=== PATIENT | male | born 1965 | race Two or more races ===

== ENCOUNTER 2022-01-13 12:50 | Emergency (ER) | payer BC, MEDICAID ==
[~2022-01-13] VITALS: Ht 185.4 cm; Wt 115.7 kg
[2022-01-13 13:05] VITALS: BP 110/89
== END 2022-01-13 15:17 | disposition home or self-care (01) ==
LOC: ER 12:50
DX: T84.038A Mechanical loosening of other internal prosthetic joint, initial encounter (principal); F17.210 Nicotine dependence, cigarettes, uncomplicated
CPT/HCPCS: 73610

== ENCOUNTER 2023-01-01 10:38 | Inpatient (IN) | payer BC, MEDICAID ==
[~2023-01-01] VITALS: Ht 185.4 cm; Wt 120.0 kg
[2023-01-01 11:21] LABS: Basophils # (auto) 0.1 10 ^3/uL (0-0.2); Nucleated Red Blood Cells % 0.1 %
[2023-01-01 11:23] LABS: Basophils % (auto) 1.1 % (0.0-2.0); Eosinophils # (auto) 0.9 10 ^3/uL (0-0.8); Eosinophils % (auto) 9.9 % (0.0-7.0); Hematocrit 54.5 % (41.0-53.0); Hemoglobin 18.3 g/dL (13.5-17.5); Lymphocytes # (auto) 2.4 10 ^3/uL (0.4-5.4); Lymphocytes % (auto) 27.1 % (10.0-50.0); Mean Corpuscular Hemoglobin 31.4 pg (28.0-32.0); Mean Corpuscular Hgb Conc. 33.5 g/dL (32.0-36.0); Mean Corpuscular Volume 93.7 fL (80.0-100.0); Monocytes # (auto) 0.5 10 ^3/uL (0-1.3); Monocytes % (auto) 5.7 % (0.0-12.0); Neutrophils % (auto) 56.2 % (37.0-80.0); Red Blood Cells 5.82 10^6/uL (4.5-5.90); Red Cell Distribution Width 13.1 % (11.8-14.3)
[2023-01-01 11:45] LABS: Potassium 3.5 mmol/L (3.5-5.1)
[2023-01-01 11:48] LABS: Albumin 3.5 g/dL (3.4-5.0); BUN/Creatinine Ratio 14.5 (10.0-20.0)
[2023-01-01 11:51] LABS: Bilirubin, Total 1.1 mg/dL (0.2-1.0); Total Protein 8.2 g/dL (6.4-8.2)
[2023-01-01] MEDS ORDERED: SODIUM CHLORIDE 0.9% 1,000 ML IV ONE (12:45)
[2023-01-01] MEDS ORDERED: LABETALOL HCL 5 MG/ML 4ML SYRINGE IV ONE (12:45)
[2023-01-01] MEDS ORDERED: METO25TA93 PO (13:24)
[2023-01-01] MEDS ORDERED: SACU1TAB PO (13:24)
[2023-01-01] MEDS ORDERED: hydrALAZINE HCL 20 MG/ML VL IV PRN (13:30)
[2023-01-01] MEDS ORDERED: ACETAMINOPHEN 325 MG TAB PO PRN (13:30)
[2023-01-01] MEDS ORDERED: DEXTROSE (50%) 50ML SYRG IV PRN (13:30)
[2023-01-01] MEDS ORDERED: TEMAZEPAM 15 MG CAP PO PRN (13:30)
[2023-01-01] MEDS ORDERED: MORPHINE SULFATE INJ 2 MG/ml SYRG IV PRN ×2 (13:30)
[2023-01-01] MEDS ORDERED: ONDANSETRON HCL 4 MG/2 ML VIAL IV PRN (13:30)
[2023-01-01] MEDS ORDERED: HYDROcodone-ACET 5/325MG TAB PO PRN (13:30)
[2023-01-01] MEDS ORDERED: NITROGLYCERIN 0.4 MG SL TAB SL PRN (13:30)
[2023-01-01] MEDS: ACCU-CHEK COMFORT CURVE STRIP VI SCH ×2 (17:00→22:00)
[2023-01-01] MEDS: InsuLIN REG 1unit/0.01ml Soln (100units/ml) SC SCH ×2 (19:00→22:00)
[2023-01-01 22:20] VITALS: BP 161/100
[2023-01-01] MEDS: SACUBITRIL-VALSARTAN 24mg/26mg TAB PO SCH (22:46)
[2023-01-01] MEDS: ENOXAPARIN SOD 120 MG/0.8 ML SYRINGE SC SCH (22:46)
[2023-01-01 23:06] VITALS: BP 161/100
[2023-01-02 05:00] VITALS: BP 168/108
[2023-01-02] MEDS: ACCU-CHEK COMFORT CURVE STRIP VI SCH ×4 (06:09→21:49)
[2023-01-02] MEDS: InsuLIN REG 1unit/0.01ml Soln (100units/ml) SC SCH ×4 (06:10→21:49)
[2023-01-02 06:26] LABS: Mean Corpuscular Hgb Conc. 34.4 g/dL (32.0-36.0); Nucleated Red Blood Cells % 0.5 %
[2023-01-02 06:29] LABS: Basophils # (auto) 0.1 10 ^3/uL (0-0.2); Basophils % (auto) 1.1 % (0.0-2.0); Eosinophils # (auto) 1.1 10 ^3/uL (0-0.8); Eosinophils % (auto) 10.4 % (0.0-7.0); Hematocrit 52.2 % (41.0-53.0); Hemoglobin 17.9 g/dL (13.5-17.5); Lymphocytes % (auto) 29.1 % (10.0-50.0); Mean Corpuscular Hemoglobin 31.9 pg (28.0-32.0); Mean Corpuscular Volume 92.8 fL (80.0-100.0); Monocytes # (auto) 0.7 10 ^3/uL (0-1.3); Monocytes % (auto) 6.8 % (0.0-12.0); Neutrophils # (auto) 5.5 10 ^3/uL (1.6-8.6); Neutrophils % (auto) 52.6 % (37.0-80.0); Red Blood Cells 5.63 10^6/uL (4.5-5.90); White Blood Cell 10.4 10^3/uL (4.4-10.8)
[2023-01-02 06:46] LABS: Albumin 3.4 g/dL (3.4-5.0); Calcium 8.7 mg/dL (8.5-10.1); Potassium 4.1 mmol/L (3.5-5.1)
[2023-01-02 06:50] LABS: BUN/Creatinine Ratio 18.8 (10.0-20.0); Bilirubin, Total 1.2 mg/dL (0.2-1.0); Total Protein 7.7 g/dL (6.4-8.2)
[2023-01-02 08:00] VITALS: BP 174/86
[2023-01-02 09:00] VITALS: BP 174/90
[2023-01-02] MEDS ORDERED: ENOXAPARIN SOD 40 MG/0.4 ML SYRINGE SC SCH (10:00)
[2023-01-02] MEDS: PANTOPRAZOLE 40 MG TAB PO SCH (10:07)
[2023-01-02] MEDS: ENOXAPARIN SOD 120 MG/0.8 ML SYRINGE SC SCH (10:07)
[2023-01-02] MEDS: SACUBITRIL-VALSARTAN 24mg/26mg TAB PO SCH ×2 (10:07→21:47)
[2023-01-02] MEDS: METOPROLOL SUCCINATE XL 50 MG TAB PO SCH (10:08)
[2023-01-02 13:00] VITALS: BP_SYST 138; BP_SYST 160; BP_DIAS 84; BP_DIAS 95
[2023-01-02 17:00] VITALS: BP 148/90
[2023-01-02] MEDS: hydrALAZINE HCL 20 MG/ML VL IV PRN (21:46)
[2023-01-02 22:00] VITALS: BP 170/93
[2023-01-03] VITALS (7 sets, daily range): BP systolic 140–178; BP diastolic 79–109
[2023-01-03] MEDS: hydrALAZINE HCL 20 MG/ML VL IV PRN (05:06)
[2023-01-03] MEDS: InsuLIN REG 1unit/0.01ml Soln (100units/ml) SC SCH ×4 (06:54→21:44)
[2023-01-03] MEDS: ACCU-CHEK COMFORT CURVE STRIP VI SCH ×4 (06:54→21:45)
[2023-01-03] MEDS ORDERED: amLODIPine BESYLATE 5 MG TAB PO SCH (10:00)
[2023-01-03] MEDS ORDERED: ENOXAPARIN SOD 40 MG/0.4 ML SYRINGE SC SCH (10:00)
[2023-01-03] MEDS: NICOTINE 21MG/24 HR TOPICAL PATCH TD SCH (10:00)
[2023-01-03] MEDS: SACUBITRIL-VALSARTAN 24mg/26mg TAB PO SCH ×2 (10:01→21:40)
[2023-01-03] MEDS: PANTOPRAZOLE 40 MG TAB PO SCH (10:02)
[2023-01-03] MEDS: ASPirin 81 mg TAB PO SCH (10:03)
[2023-01-03] MEDS: METOPROLOL SUCCINATE XL 50 MG TAB PO SCH (10:03)
[2023-01-03] MEDS ORDERED: OPTISON 3ml Vial for INJ IV ONE (10:59)
[2023-01-03] MEDS ORDERED: amLODIPine BESYLATE 5 MG TAB PO ONE (11:00)
[2023-01-03] MEDS ORDERED: IOHEXOL 350 MG/ML 100ML IJ ONE (15:40)
[2023-01-03] MEDS ORDERED: ENOXAPARIN SOD 120 MG/0.8 ML SYRINGE SC ONE (17:00)
[2023-01-03] MEDS ORDERED: ENOXAPARIN SOD 80 MG/0.8ML SYRINGE SC ONE (17:00)
[2023-01-03] MEDS: ENOXAPARIN SOD 120 MG/0.8 ML SYRINGE SC SCH (21:40)
[2023-01-04 05:00] VITALS: BP 143/96
[2023-01-04] MEDS: InsuLIN REG 1unit/0.01ml Soln (100units/ml) SC SCH ×4 (06:08→21:27)
[2023-01-04] MEDS: ACCU-CHEK COMFORT CURVE STRIP VI SCH ×4 (06:08→21:27)
[2023-01-04 09:00] VITALS: BP 128/80
[2023-01-04] MEDS: NICOTINE 21MG/24 HR TOPICAL PATCH TD SCH (10:00)
[2023-01-04] MEDS: HCTZ 25 MG TAB PO SCH (11:20)
[2023-01-04] MEDS: amLODIPine BESYLATE 5 MG TAB PO SCH (11:21)
[2023-01-04] MEDS: PANTOPRAZOLE 40 MG TAB PO SCH (11:22)
[2023-01-04] MEDS: ASPirin 81 mg TAB PO SCH (11:22)
[2023-01-04] MEDS: METOPROLOL SUCCINATE XL 50 MG TAB PO SCH (11:22)
[2023-01-04] MEDS: SACUBITRIL-VALSARTAN 24mg/26mg TAB PO SCH ×2 (11:22→21:24)
[2023-01-04] MEDS: ENOXAPARIN SOD 120 MG/0.8 ML SYRINGE SC SCH ×2 (11:24→21:24)
[2023-01-04 13:00] VITALS: BP 121/80
[2023-01-04 17:00] VITALS: BP 126/83
[2023-01-04 22:00] VITALS: BP 126/81
[2023-01-05 05:00] VITALS: BP 134/90
[2023-01-05 06:09] LABS: Basophils # (auto) 0.1 10 ^3/uL (0-0.2); Hemoglobin 18.6 g/dL (13.5-17.5); Monocytes # (auto) 0.7 10 ^3/uL (0-1.3); Monocytes % (auto) 7.3 % (0.0-12.0); Nucleated Red Blood Cells % 0.2 %; White Blood Cell 10.1 10^3/uL (4.4-10.8)
[2023-01-05 06:11] LABS: Eosinophils # (auto) 0.9 10 ^3/uL (0-0.8); Eosinophils % (auto) 9.3 % (0.0-7.0); Hematocrit 53.9 % (41.0-53.0); Lymphocytes # (auto) 3.5 10 ^3/uL (0.4-5.4); Lymphocytes % (auto) 35.1 % (10.0-50.0); Mean Corpuscular Hgb Conc. 34.4 g/dL (32.0-36.0); Mean Corpuscular Volume 93.1 fL (80.0-100.0); Neutrophils # (auto) 4.8 10 ^3/uL (1.6-8.6); Neutrophils % (auto) 47.3 % (37.0-80.0); Red Blood Cells 5.79 10^6/uL (4.5-5.90); Red Cell Distribution Width 13.1 % (11.8-14.3)
[2023-01-05] MEDS: InsuLIN REG 1unit/0.01ml Soln (100units/ml) SC SCH ×4 (06:24→21:52)
[2023-01-05] MEDS: ACCU-CHEK COMFORT CURVE STRIP VI SCH ×4 (06:24→21:53)
[2023-01-05 06:33] LABS: Calcium 8.6 mg/dL (8.5-10.1)
[2023-01-05 06:37] LABS: BUN/Creatinine Ratio 15.5 (10.0-20.0)
[2023-01-05 09:00] VITALS: BP 118/81
[2023-01-05] MEDS: SACUBITRIL-VALSARTAN 24mg/26mg TAB PO SCH ×2 (09:35→21:48)
[2023-01-05] MEDS: amLODIPine BESYLATE 5 MG TAB PO SCH (09:37)
[2023-01-05] MEDS: PANTOPRAZOLE 40 MG TAB PO SCH (09:37)
[2023-01-05] MEDS: ASPirin 81 mg TAB PO SCH (09:37)
[2023-01-05] MEDS: HCTZ 25 MG TAB PO SCH (09:38)
[2023-01-05] MEDS: METOPROLOL SUCCINATE XL 50 MG TAB PO SCH (09:39)
[2023-01-05] MEDS: ENOXAPARIN SOD 120 MG/0.8 ML SYRINGE SC SCH ×2 (09:43→21:48)
[2023-01-05] MEDS: NICOTINE 21MG/24 HR TOPICAL PATCH TD SCH (09:46)
[2023-01-05 13:00] VITALS: BP 125/77
[2023-01-05 17:00] VITALS: BP 120/71
[2023-01-05 22:00] VITALS: BP 119/82
[2023-01-06 05:00] VITALS: BP 128/89
[2023-01-06] MEDS: InsuLIN REG 1unit/0.01ml Soln (100units/ml) SC SCH ×4 (06:01→22:00)
[2023-01-06] MEDS: ACCU-CHEK COMFORT CURVE STRIP VI SCH ×4 (06:02→22:19)
[2023-01-06 06:30] LABS: INR 1.12 (0.9-1.15); Partial Thromboplastin Time 37.4 sec (24.6-33.4)
[2023-01-06 07:05] LABS: Urine Bacteria NONE SEEN /hpf (None Seen); Urine Blood 1+ /uL (Negative); Urine Hyaline Cast FEW /lpf (0 - 2); Urine Mucus FEW (None Seen); Urine Specific Gravity 1.024 (1.001-1.035); Urine WBC 156 /hpf (0 - 3); Urine WBC Clumps PRESENT /hpf (None Seen)
[2023-01-06] MEDS: NICOTINE 21MG/24 HR TOPICAL PATCH TD SCH (10:00)
[2023-01-06] MEDS: PANTOPRAZOLE 40 MG TAB PO SCH (10:27)
[2023-01-06] MEDS: ASPirin 81 mg TAB PO SCH (10:27)
[2023-01-06] MEDS: SACUBITRIL-VALSARTAN 24mg/26mg TAB PO SCH ×2 (10:27→22:19)
[2023-01-06] MEDS: amLODIPine BESYLATE 5 MG TAB PO SCH (10:28)
[2023-01-06] MEDS: HCTZ 25 MG TAB PO SCH (10:28)
[2023-01-06] MEDS: METOPROLOL SUCCINATE XL 50 MG TAB PO SCH (10:29)
[2023-01-06] MEDS: ENOXAPARIN SOD 120 MG/0.8 ML SYRINGE SC SCH ×2 (10:30→22:19)
[2023-01-06 10:50] VITALS: BP 128/76
[2023-01-06 11:19] VITALS: BP 128/76
[2023-01-06] MEDS ORDERED: ceFAZolin 1GM/50ML 100 ML IV ONE (18:21)
[2023-01-06] MEDS ORDERED: BUPIVACAINE 0.25% INJ 50ML VIAL ONE (18:53)
[2023-01-06] MEDS ORDERED: ceFAZolin 1GM VL ONE (18:53)
[2023-01-06] MEDS ORDERED: fentaNYL CITRATE 100 MCG/2 ML VL ONE (19:11)
[2023-01-06] MEDS ORDERED: MIDAZOLAM HCL 2MG/2ML 2ml VIAL (1mg/ml) ONE (19:11)
[2023-01-06] MEDS ORDERED: PROPOFOL 10 MG/ML 20 ML IV ONE ×2 (19:38→19:40)
[2023-01-06] MEDS ORDERED: ONDANSETRON HCL 4 MG/2 ML VIAL ONE (19:38)
[2023-01-06] MEDS ORDERED: HYDROmorphone HCL 2 MG/ML VL/or syr IV PRN ×2 (20:15)
[2023-01-06] MEDS ORDERED: ONDANSETRON HCL 4 MG/2 ML VIAL IV PRN (20:15)
[2023-01-06] MEDS ORDERED: HYDROmorphone HCL 2 MG/ML VL/or syr ONE (20:17)
[2023-01-06 22:00] VITALS: BP 108/68
[2023-01-07 05:00] VITALS: BP 123/77
[2023-01-07] MEDS: InsuLIN REG 1unit/0.01ml Soln (100units/ml) SC SCH ×3 (06:48→16:50)
[2023-01-07] MEDS: ACCU-CHEK COMFORT CURVE STRIP VI SCH ×3 (06:48→16:42)
[2023-01-07 08:00] VITALS: BP 113/77
[2023-01-07] MEDS: NICOTINE 21MG/24 HR TOPICAL PATCH TD SCH (10:00)
[2023-01-07] MEDS: ASPirin 81 mg TAB PO SCH (10:20)
[2023-01-07] MEDS: SACUBITRIL-VALSARTAN 24mg/26mg TAB PO SCH (10:21)
[2023-01-07] MEDS: PANTOPRAZOLE 40 MG TAB PO SCH (10:21)
[2023-01-07] MEDS: METOPROLOL SUCCINATE XL 50 MG TAB PO SCH (10:21)
[2023-01-07] MEDS: HCTZ 25 MG TAB PO SCH (10:21)
[2023-01-07] MEDS: amLODIPine BESYLATE 5 MG TAB PO SCH (10:21)
[2023-01-07] MEDS: ENOXAPARIN SOD 120 MG/0.8 ML SYRINGE SC SCH (10:22)
[2023-01-07] MEDS ORDERED: HYDR25TA5 PO (14:52)
[2023-01-07] MEDS ORDERED: METO25TA93 PO (14:52)
[2023-01-07] MEDS ORDERED: ASPI-325 PO (14:52)
[2023-01-07] MEDS ORDERED: AML5T PO (14:52)
[2023-01-07] MEDS ORDERED: APIX5TAB PO (14:52)
[2023-01-07] MEDS ORDERED: SACU1TAB PO (14:52)
[2023-01-07] MEDS ORDERED: PANT40TA2 PO (14:52)
[2023-01-07] MEDS ORDERED: GLIP5TAB12 PO (14:53)
[2023-01-07] MEDS ORDERED: METF-370 PO (14:53)
[2023-01-07] MEDS ORDERED: CEPH500C PO (14:54)
[2023-01-07 16:02] VITALS: BP 105/70
[2023-01-07 16:41] VITALS: BP 127/75
[2023-01-07] MEDS ORDERED: APIXABAN 5 MG TAB PO SCH (22:00)
== END 2023-01-07 18:50 | disposition home or self-care (01) | DRG 463 ==
LOC: ER 10:38 → TELE 13:23 → TELE-EAST 21:45
PROVIDERS: ADMIT Nurse Practitioner; ATTEND Nurse Practitioner
PROC: 0JBN0ZZ Excision of Right Lower Leg Subcutaneous Tissue and Fascia, Open Approach (ICD-10-PCS; 2023-01-06)
PROC: 0QPG04Z Removal of Internal Fixation Device from Right Tibia, Open Approach (ICD-10-PCS; principal; 2023-01-06 19:06)
DX: T84.116A Breakdown (mechanical) of internal fixation device of bone of right lower leg, initial encounter (principal); I26.99 Other pulmonary embolism without acute cor pulmonale; I82.401 Acute embolism and thrombosis of unspecified deep veins of right lower extremity; I50.22 Chronic systolic (congestive) heart failure; T84.622A Infection and inflammatory reaction due to internal fixation device of right tibia, initial encounter; E11.65 Type 2 diabetes mellitus with hyperglycemia; E66.01 Morbid (severe) obesity due to excess calories; F17.210 Nicotine dependence, cigarettes, uncomplicated; I11.0 Hypertensive heart disease with heart failure; I16.0 Hypertensive urgency; Y79.3 Surgical instruments, materials and orthopedic devices (including sutures) associated with adverse incidents; T84.84XA Pain due to internal orthopedic prosthetic devices, implants and grafts, initial encounter; I27.20 Pulmonary hypertension, unspecified; Z79.01 Long term (current) use of anticoagulants; Z79.82 Long term (current) use of aspirin; Z83.3 Family history of diabetes mellitus; Z86.711 Personal history of pulmonary embolism; Y92.89 Other specified places as the place of occurrence of the external cause
CPT/HCPCS: 36415; 71275; 73590; 73610; 73700; 76000; 80048; 80053; 81001; 82962; 83036; 83880; 85025; 85379; 85610; 85730; 87070; 87075; 87076; 87077; 87081; 87186; 87205; 93005; 93306; 93970; 96361; 96374; G0378; J0690; J1815; J2250; J2405; J2704; J3490; Q9956